=== PATIENT | female | born 1945 | race Caucasian/White ===

== ENCOUNTER → 2024-08-11 13:30 | Outpatient (CLI) | payer MEDICARE, SELFPAY ==
--- NOTE | 2024-08-11 13:36 | DI.ECHO.S_ITS ---
[facility] : : [id number] : [place] : : [id number] : : Phone: [phone] Echocardiogram Report + + :Name: JEANINE GUERRA Study Date: 08/11/2024 Height: 65 in : :Hospital ReadingLocation: Weight: 135 lb : : Gender: Female BSA: 1.7 m2 : :: 1945 Age: 78 yrs BP: 124/76 mmHg: :Reason For Study: SHORTNESS OF BREATH : :Ordering Physician: BLANKA, : :ALEXANDRE Performed By: Emery Hemphill : :Referring: ALEXANDRE KERNS : + + Interpretation Summary The left ventricle is normal in size. The ejection fraction is estimated to be 60-65%. There are no focal wall motion abnormalities. Diastolic parameters suggest probable normal left ventricular diastolic function and normal filling pressures. The right ventricle is normal in size and function. The right ventricular systolic pressure is estimated to be at least 25 mmHg based on an estimated right atrial pressure of 3 mm Hg. The left atrium is moderately dilated. There is mild mitral regurgitation. There is mild aortic regurgitation. The aortic root is normal size. Procedure: A two-dimensional transthoracic echocardiogram with color flow and Doppler was performed. The study quality was technically difficult. There is no prior echocardiogram noted for this patient. The patient was in normal sinus rhythm during the exam. Left Ventricle: The left ventricle is normal in size. There is normal left ventricular wall thickness. There is no ventricular septal defect visualized. The ejection fraction is estimated to be 60-65%. There are no focal wall motion abnormalities. Diastolic parameters suggest probable normal left ventricular diastolic function and normal filling pressures. Right Ventricle: The right ventricle is normal in size and function. Atria: The left atrium is moderately dilated. Right atrial size is normal. There is no Doppler evidence for an atrial septal defect. Mitral Valve: The mitral valve leaflets appear normal. There is no evidence of stenosis, fluttering, or prolapse. There is mild mitral regurgitation. Aortic Valve: The aortic valve is trileaflet. The aortic valve opens well. There is mild aortic regurgitation. Tricuspid Valve: The tricuspid valve leaflets are thin and pliable. There is a trace or physiologic amount of tricuspid regurgitation. The right ventricular systolic pressure is estimated to be at least 25 mmHg based on an estimated right atrial pressure of 3 mm Hg. Pulmonic Valve: The pulmonic valve is not well visualized. There is no pulmonic valvular regurgitation. Great Vessels: The aortic root is normal size. The ascending aorta could not be visualized. The pulmonary artery is normal size. The IVC is of normal diameter and collapses greater than 50% with a sniff. This suggests a low right atrial pressure of 3 mm Hg. Pericardium/ Pleura There is no pericardial effusion. There is no pleural effusion. MMode/2D Measurements & Calculations LVIDd: 4.0 cm LVOT diam: 1.9 cm LVIDs: 2.8 cm Ao root diam: 3.2 cm FS: 30.0 % Ao Arch Diam (Prox Trans): 2.4 cm EPSS: 0.52 cm IVSd: 0.89 cm LVPWd: 0.92 cm LV neff. diameter/BSA (cm/m^2): 2.4 LV sys. diameter/BSA (cm/m^2): 1.7 LA A2 area: 23.3 cm2 RA long axis: 3.8 cm LA A4 area: 21.2 cm2 RA area: 11.4 cm2 LA length (vol): 5.4 cm RA vol: 29.0 ml LA vol: 77.2 ml RA : 17.3 ml/m2 LA vol index: 46.1 ml/m2 IVC diam: 0.88 cm RVD1 (basal): 3.7 cm RVD2 (mid): 2.6 cm TAPSE: 2.9 cm Doppler Measurements & Calculations Ao V2 max: 126.7 cm/sec LVOT Max Onofre: 104.1 cm/sec Ao V2 mean: 91.3 cm/sec LV V1 max P.3 mmHg Ao max P.4 mmHg LV V1 VTI: 27.1 cm Ao mean P.6 mmHg GEOVANNA(I,D): 2.5 cm2 Ao V2 VTI: 30.6 cm GEOVANNA(V,D): 2.3 cm2 sev ratio: 0.89 GEOVANNA indexed to BSA (cm^2/m^2): 1.5 MV E max onofre: 86.2 cm/sec TR max onofre: 233.6 cm/sec MV A max onofre: 59.5 cm/sec TR max P.8 mmHg MV E/A: 1.4 PA V2 max: 83.6 cm/sec Med Peak E' Onofre: 8.2 cm/sec PA V2 mean: 65.5 cm/sec E/E' med: 10.5 PA mean P.9 mmHg Lat Peak E' Onofre: 7.3 cm/sec PA pr(Accel): 13.9 mmHg E/E' lat: 11.8 E/e' average: 11.2 MV dec time: 0.16 sec SV(LVOT): 76.0 ml Reading Physician:11:58 AM
== END ==
PROVIDERS: PCP Student in an Organized Health Care Education/Training Program; Referring Provider Internal Medicine Cardiovascular Disease; Visit Provider Internal Medicine Cardiovascular Disease
DX: I08.0 Rheumatic disorders of both mitral and aortic valves (principal); I10 Essential (primary) hypertension; R06.09 Other forms of dyspnea
CPT/HCPCS: 93306